=== PATIENT | female | born 1955 | race Caucasian/White ===

== ENCOUNTER → 2017-03-03 | Outpatient (CLI) | payer OTHER ==
--- NOTE | 2017-03-03 13:14 | RAD ---
DATE: 03/03/2017 EXAM: DIGITAL SCREEN BILAT W/CAD HISTORY: Screening study. COMPARISON: 02/19/2016 This study was interpreted with the benefit of Computerized Aided Detection (CAD). FINDINGS: Digital MLO and CC mammograms of both breasts were obtained. Comparison study is dated 02/19/2016 the breast parenchyma is heterogeneously dense which can obscure a lesion on mammography (breast density code C). No spiculated mass is seen. No malignant appearing calcification or area of architectural distortion is noted. Since the previous examination there has been no significant interval change. IMPRESSION: BI-RADS Category 1, negative. There is no mammographic evidence of malignancy. Routine yearly screening mammography is recommended for follow-up. BI-RADS CATEGORY: 1 NEGATIVE RECOMMENDED FOLLOW-UP: 12M 12 MONTH FOLLOW-UP PQRS compliance statement: Patient information was entered into a reminder system with a target due date 03/03/2018 for the next mammogram. Mammography is a sensitive method for finding small breast cancers, but it does not detect them all and is not a substitute for careful clinical examination. A negative mammogram does not negate a clinically suspicious finding and should not result in delay in biopsying a clinically suspicious abnormality. "Our facility is accredited by the [employer] Mammography [employer]."
== END | disposition home or self-care (01) ==
LOC: MAMMO 09:54
PROVIDERS: ATTEND Family Medicine
DX: Z12.31 Encounter for screening mammogram for malignant neoplasm of breast (principal)
CPT/HCPCS: G0202; 77067

== ENCOUNTER → 2018-06-14 | Outpatient (CLI) | payer OTHER ==
--- NOTE | 2018-06-14 15:56 | RAD ---
DATE: 06/14/2018 EXAM: MAMMO TIFFANY SCREENING BILATERAL HISTORY: Routine screening COMPARISON: 03/03/2017 This study was interpreted with the benefit of Computerized Aided Detection (CAD). The breast parenchyma is heterogeneously dense, which could reduce sensitivity of mammography. Breast parenchyma level C. FINDINGS: 2-D and 3-D tomosynthesis imaging was performed in CC and MLO projections. No new or enlarging breast densities are seen. No suspicious microcalcifications are evident. IMPRESSION: Stable mammograms without evidence of malignancy. BI-RADS CATEGORY: 1 NEGATIVE RECOMMENDED FOLLOW-UP: 12M 12 MONTH FOLLOW-UP PQRS compliance statement: Patient information was entered into a reminder system with a target due date for the next mammogram. Mammography is a sensitive method for finding small breast cancers, but it does not detect them all and is not a substitute for careful clinical examination. A negative mammogram does not negate a clinically suspicious finding and should not result in delay in biopsying a clinically suspicious abnormality. "Our facility is accredited by the [employer] Mammography [employer]."
== END | disposition home or self-care (01) ==
LOC: MAMMO 10:10
PROVIDERS: ATTEND Family Medicine
DX: Z12.31 Encounter for screening mammogram for malignant neoplasm of breast (principal)
CPT/HCPCS: 77063; 77067

== ENCOUNTER → 2018-09-24 | Outpatient (CLI) | payer OTHER ==
--- NOTE | 2018-09-24 15:04 | RAD ---
Bilateral knees, 4 views, 09/24/2018: HISTORY: Knee pain There is only minimal narrowing of the knee joint spaces medially. No fracture or dislocation is identified. No large joint effusion is seen. IMPRESSION: No acute bony abnormality is detected. Electronically signed by: Guevara Smith MD (09/24/2018 3:01 PM) [facility]
== END | disposition home or self-care (01) ==
LOC: RAD 08:09
PROVIDERS: ATTEND Family Medicine
DX: M25.562 Pain in left knee (principal); M25.561 Pain in right knee
CPT/HCPCS: 73560

== ENCOUNTER → 2020-10-24 | Outpatient (CLI) | payer MEDICARE ==
--- NOTE | 2020-10-24 15:29 | RAD ---
EXAM: DUAL ENERGY X-RAY ABSORPTIOMETRY (DEXA). HISTORY: Postmenopausal screening. FINDINGS: The lowest measured T-score is -3.5 in the lumbar spine, based on a bone mineral density of 0.759 g/cm^2. Refer to the worksheets for full detail. No comparison examinations are available. IMPRESSION: Osteoporosis. Bone mineral density yields a T-score of -2.5 or less. Fracture risk is high. METHODOLOGY: Dual energy x-ray absorptiometry was performed to measure bone mineral density. The following analysis is based on the 2019 Official Positions of the International Society for Clinical Densitometry: Measurements of the hips and the average of L1-L4 are preferred. When the spine and/or hip cannot be feasibly measured or interpreted, or in the setting of hyperparathyroidism, distal radial bone mineral density may be measured. The lumbar spine T-score is based on the average bone mineral density of L1-L4. In the setting of artifact or anatomic abnormality, some lumbar levels may be excluded, and the remaining levels used for calculation. A single lumbar level is not used for diagnosis, and if only a single level is available for assessment, another anatomic site will be used to assign a diagnosis. The hip T-score is based on the bone mineral density measurement of the femoral neck or total proximal femur of either side, whichever is lowest. Bilateral mean values are not used for diagnosis. The forearm T-score is derived from 33% of the distal radius of the nondominant forearm. Electronically signed by: Rosita Cantor MD (10/24/2020 3:26 PM) [facility]
--- NOTE | 2020-10-24 17:38 | RAD ---
DATE: 10/24/2020 2:10 PM EXAM: MAMMO TIFFANY SCREENING BILATERAL HISTORY: Screening COMPARISON: 06/14/2018 Bilateral CC and MLO views of the breasts were performed. Bilateral breast tomosynthesis was performed in CC and MLO projections. This study was interpreted with the benefit of Computerized Aided Detection (CAD). FINDINGS: Breast Density: SCATTERED The breast parenchyma shows scattered fibroglandular densities. Breast parenchyma level B No suspicious masses, microcalcifications or architectural distortion is present to suggest malignancy in either breast. The visualized axillae are unremarkable. IMPRESSION: No mammographic evidence of malignancy. BI-RADS CATEGORY: 1 NEGATIVE RECOMMENDED FOLLOW-UP: 12M 12 MONTH FOLLOW-UP Annual screening mammography is recommended, unless clinically indicated sooner based on symptoms or change in physical exam. PQRS compliance statement: Patient information was entered into a reminder system with a target due date for the next mammogram. Mammography is a sensitive method for finding small breast cancers, but it does not detect them all and is not a substitute for careful clinical examination. A negative mammogram does not negate a clinically suspicious finding and should not result in delay in biopsying a clinically suspicious abnormality. "Our facility is accredited by the [employer] Mammography Program."
== END ==
LOC: DXRAD 13:52
PROVIDERS: ATTEND Family Medicine
DX: Z12.31 Encounter for screening mammogram for malignant neoplasm of breast (principal); Z78.0 Asymptomatic menopausal state
CPT/HCPCS: 77063; 77067; 77080

== ENCOUNTER → 2021-11-05 | Outpatient (CLI) | payer MEDICARE ==
--- NOTE | 2021-11-05 16:08 | RAD ---
Site ID: [id number] EXAMINATION: XR HIP (WITH OR WITHOUT PELVIS) 1 VIEW. HISTORY: 66 years Female Reason: BILATERAL HIP PAIN COMPARISON: None. FINDINGS: No fracture, dislocation or radiopaque foreign body seen in bilateral hip radiographs and AP pelvis x -ray. The joint spaces and articular surfaces appear unremarkable. IMPRESSION: Unremarkable exam. Electronically signed by: Miguel Centeno MD (11/05/2021 4:06 PM) [id number]
== END ==
LOC: RAD 10:03
PROVIDERS: ATTEND Family Medicine
DX: M25.551 Pain in right hip (principal); M25.552 Pain in left hip
CPT/HCPCS: 73521